=== PATIENT | male | born 1965 | race Caucasian/White ===

== ENCOUNTER 2019-12-21 20:37 | Emergency (ER) | payer OTHER ==
[2019-12-21] MEDS ORDERED: ACETAMINOPHEN 325 MG TABLET PO ONE (21:59)
--- NOTE | 2019-12-21 22:42 | RADIOLOGY REPORT (SQ) ---
2 VIEWS OF RIGHT FEMUR HISTORY: Leg pain. COMPARISON: None. FINDINGS: No acute fracture or dislocation is seen. The joint spaces are preserved. The soft tissues are unremarkable. IMPRESSION: No acute fracture or malalignment.
== END 2019-12-22 00:11 | disposition left against medical advice (07) ==
LOC: ER 20:37
DX: Z53.21 Procedure and treatment not carried out due to patient leaving prior to being seen by health care provider (principal)